=== PATIENT | female | born 1990 | race African-American/Black ===

== ENCOUNTER 2022-03-30 21:40 | Observation (INO) | payer MEDICAID ==
[~2022-03-30] VITALS: Ht 157.5 cm; Wt 59.0 kg
[2022-03-30] MEDS ORDERED: PRENATAL VITAMIN (22:05)
[2022-03-30] MEDS ORDERED: LACTATED RINGERS 1,000 ML IV SCH (22:15)
[2022-03-30] MEDS ORDERED: MAGNESIUM/ALUMINUM HYDROXIDE/SIMETHICONE 30ML UDC PO NR (22:15)
== END 2022-03-30 23:50 | disposition home or self-care (01) ==
LOC: 8 EST LDRP 21:40
PROVIDERS: ADMIT Specialist; ATTEND Specialist
DX: O26.893 Other specified pregnancy related conditions, third trimester (principal); R10.13 Epigastric pain; O21.2 Late vomiting of pregnancy; Z3A.32 32 weeks gestation of pregnancy
CPT/HCPCS: 59025; 96360; 96361; G0378; J7120; 99281; G0379